=== PATIENT | male | born 1955 | race Native Hawaiian/Other Pacific Islander ===

== ENCOUNTER 2022-07-15 22:16 | Emergency (ER) | payer OTHER ==
[~2022-07-15] VITALS: Ht 170.2 cm; Wt 90.7 kg
[2022-07-15 22:16] VITALS: TEMP 98.1
[2022-07-15 22:38] LABS: PLATELET COUNT 164 K/uL (142-355)
[2022-07-15 22:47] LABS: POTASSIUM 3.8 mmol/L (3.6-5.2)
[2022-07-15 23:35] VITALS: BP 141/76
[2022-07-16] MEDS ORDERED: ARIPIPRAZOLE5 MG PO (08:29)
[2022-07-16] MEDS ORDERED: PRAZOSIN HCL2 MG PO (08:30)
[2022-07-16] MEDS ORDERED: QUETIAPINE50 MG PO (08:31)
[2022-07-16] MEDS ORDERED: QUETIAPINE100 MG PO (08:31)
[2022-07-16] MEDS ORDERED: DICLOFENAC SODIUM1 % TOP (08:33)
[2022-07-16] MEDS ORDERED: DULOXETINE HCL30 MG PO (08:34)
[2022-07-16] MEDS ORDERED: BUSPIRONE5 MG PO (08:34)
[2022-07-16] MEDS ORDERED: MAGNESIUM OXID400 M1 PO (08:35)
[2022-07-16] MEDS ORDERED: BISACODYL5 M1 PO (08:35)
[2022-07-16] MEDS ORDERED: MAGNSUS68 PO (08:35)
[2022-07-16] MEDS ORDERED: ONDANSETRON4 M2 PO (08:36)
[2022-07-16] MEDS ORDERED: TYLENOL325 MG PO (08:36)
== END 2022-07-15 23:35 | disposition still patient (30) ==
LOC: ED 22:16
PROVIDERS: Emergency Medicine
DX: F32.89 Other specified depressive episodes (principal); R45.851 Suicidal ideations; Z00.8 Encounter for other general examination
CPT/HCPCS: 36415; 80053; 81002; 85027; 87635; 93005; 99283; U0003